=== PATIENT | female | born 1995 | race Caucasian/White ===

== ENCOUNTER 2017-05-26 01:19 | Emergency (ER) | payer OTHER ==
[~2017-05-26 01:19] MED LIST: CETI10TA10 PO; HYDR-3983 PO; PSEU120T2 PO
[2017-05-26 01:26] VITALS: O2SAT 94
[2017-05-26 01:30] VITALS: TEMP 36.5
[2017-05-26 02:21] LABS: BLOOD UREA NITROGEN 7 mg/dl (7-18); BUN/CREATININE RATIO 10.5 (10-20); CALCIUM 7.6 mg/dl (8.5-10.1); CARBON DIOXIDE 23 mmol/L (21-32); CHLORIDE 107 mmol/L (98-107); CREATININE 0.68 mg/dl (0.60-1.20); GLUCOSE 88 mg/dl (70-99); POTASSIUM 2.7 mmol/L (3.5-5.1); SODIUM 139 mmol/L (136-145)
[2017-05-26 02:22] LABS: PREG INTERNAL NEGATIVE QC NEG CLEAR BACKGROUND; PREG INTERNAL POSITIVE QC POS CONTROL LINE
[2017-05-26 07:11] VITALS: BP 127/78; PULSE 94; O2SAT 98
--- NOTE | 2017-05-26 23:08 | EMERGENCY ROOM VISIT NOTE ---
ED Visit Note First contact with patient: 01:20 CHIEF COMPLAINT: Altered mental status from Alcohol overdose HISTORY OF PRESENT ILLNESS: This 21 year old female patient presents to the emergency department via ambulance for evaluation of altered mental status, presumably from alcohol intoxication. The patient was observed being carried by her friends down the sidewalk in [facility]. The local police approached the patient who blew a 0.197 breathalyzer. The patient then began having several episodes of emesis and was difficult to arouse. Because of this she now presents to the ER for further management and evaluation. The patient admits to drinking alcohol tonight. She denies drug or substance abuse. There is no concern for sexual assault. The patient denies or injury. REVIEW OF SYSTEMS: Review of systems was somewhat limited secondary to patient' s presumed alcohol intoxication status. Review of systems was performed to the best of our ability and reperformed as the patient began to sober up. All other systems were reviewed and are negative. ALLERGIES: See EMR MEDICATIONS: See EMR PMH: No chronic medical disease SOCIAL HISTORY: Student who lives locally PHYSICAL EXAM VITALS: Vitals are noted on the nurse's note and reviewed by myself. Vital signs stable. GENERAL: White female, who is in no acute distress and resting comfortably. Patient is visibly altered and smells of alcohol. HEAD: Normocephalic atraumatic. EARS: External ear normal. External auditory canals clear, tympanic membranes pearly landa without erythema or effusion bilaterally. EYES: Pupils equal round and reactive to light and accommodation. Conjunctivae without injection, sclerae without icterus. Extraocular movements intact. NOSE: Patent, turbinates without inflammation or discharge. MOUTH: Mucous membranes moist. Tonsils are not enlarged. Pharynx without erythema, blood, vomitus, or exudate. Uvula midline. Airway patent. NECK: Supple without nuchal rigidity. No lymphadenopathy. Cervical spine is nontender. HEART: Regular rate and rhythm without murmurs gallops or rubs. LUNGS: Clear to auscultation bilaterally without wheezes, rales or rhonchi. No retractions or accessory muscle use. ABDOMEN: Positive normal bowel sounds x 4. Soft, nontender, without masses or organomegaly. No guarding or rebound tenderness. MUSCULOSKELETAL: No muscle atrophy, erythema, or edema noted. Gross motor function intact to all extremities. NEURO: Patient was alert to person but not place or time. They appear with altered mental status. SKIN: The skin was without rashes, erythema, edema, or bruising. No Tenting of the skin. EMERGENCY DEPARTMENT COURSE: Physical exam and history was performed. Nursing notes and EMR were reviewed. The patient appears to be altered on my examination. I suspect this is from an alcohol overdose. Conservative care measures and aspiration precautions were instituted. The patient was placed on shop superintendent and watched during the patient's stay. The patient was placed in a prone position. Blood work was obtained and was reviewed. The patient's blood alcohol level was 254. This appears to be the primary cause of the altered status. Patient was reevaluated multiple times throughout the course of their emergency department stay. Over time the patient did sober up and was able to talk, walk , and drink fluids without difficulty. The patient was felt stable for discharge home. The patient was given alcohol intoxication handouts. The patient was discharged home in stable condition with a sober ride. Differential diagnosis: Etiologies such as alcohol intoxication, metabolic, infection, hypoglycemia, electrolyte abnormalities, cardiac sources, intracerebral event, toxicologic, neurologic, as well as others were entertained. DIAGNOSIS: Acute alcohol intoxication Current/Historical Medications Unable to Obtain Active Prescriptions or Reported Meds Allergies Coded Allergies: No Known Allergies (Unverified , 06/24/14) Vital Signs Date Time Temp Pulse Resp B/P (MAP) Pulse Ox O2 Delivery O2 Flow Rate FiO2 05/26/17 07:11 94 23 127/78 98 05/26/17 06:30 100 18 115/85 100 Room Air 05/26/17 05:34 62 05/26/17 05:00 55 16 95/49 97 Room Air 05/26/17 04:00 60 16 98/41 97 Room Air 05/26/17 02:11 64 16 89/39 97 Room Air 05/26/17 01:32 68 05/26/17 01:30 36.5 64 16 118/47 96 Room Air 05/26/17 01:26 94 Room Air 05/26/17 01:26 94 Room Air Laboratory Results 05/26/17 01:35 Test 05/26/17 01:31 05/26/17 01:35 Ethyl Alcohol mg/dL 254.0 mg/dl (0-3) Anion Gap 9.0 mmol/L (3-11) Estimated GFR () 144.9 Estimated GFR (Non- 125.0 BUN/Creatinine Ratio 10.5 (10-20) Calcium Level 7.6 mg/dl (8.5-10.1) Human Chorionic Gonadotropin, Qual NEG (NEG) Departure Information Prescriptions Unable to Obtain Active Prescriptions or Reported Meds Referrals [facility] (PCP) Patient Instructions My [facility]
== END 2017-05-26 07:00 | disposition home or self-care (01) ==
LOC: EDBD 01:19 → C.EDB 01:20
DX: F10.129 Alcohol abuse with intoxication, unspecified (principal)

== ENCOUNTER 2018-02-05 21:56 | Emergency (ER) | payer OTHER ==
[~2018-02-05] VITALS: Ht 175.3 cm; Wt 68.8 kg
[2018-02-05 22:07] VITALS: TEMP 37.3; Ht 175.3 cm; Wt 68.8 kg
[2018-02-05] MEDS ORDERED: SODIUM CHLORIDE 0.9% 1000ML 1,000 ML IV STA (22:44)
[2018-02-05 23:03] LABS: BASO % 0.2 %; BASO ABS # 0.01 K/uL (0-0.2); EOS % 1.1 %; EOS ABS # 0.06 K/uL (0-0.5); HEMATOCRIT 39.4 % (37-47); HEMOGLOBIN 13.6 g/dL (12.0-16.0); IG# 0.02 K/uL (0.00-0.02); LYMPH ABS # 0.57 K/uL (1.2-3.4); MEAN CELL VOLUME 87.8 fL (80-100); MEAN CORPUSCULAR HEMOGLOBIN 30.3 pg (25-34); MEAN CORPUSCULAR HGB CONC 34.5 g/dl (32-36); MEAN PLATELET VOLUME 10.2 fL (7.4-10.4); MONO % 8.3 %; MONO ABS # 0.47 K/uL (0.11-0.59); NEUT ABS # 4.55 K/uL (1.4-6.5); PLATELET COUNT 191 K/uL (130-400); RED CELL DISTRIBUTION WIDTH CV 13.5 % (11.5-14.5); RED CELL DISTRIBUTION WIDTH SD 43.3 fL (36.4-46.3); WHITE BLOOD COUNT 5.68 K/uL (4.8-10.8)
[2018-02-05 23:10] LABS: ALBUMIN 3.8 gm/dl (3.4-5.0); CALCIUM 8.3 mg/dl (8.5-10.1); CREATININE 0.82 mg/dl (0.60-1.20); POTASSIUM 3.8 mmol/L (3.5-5.1)
[2018-02-05 23:13] LABS: TOTAL PROTEIN 7.2 gm/dl (6.4-8.2)
--- NOTE | 2018-02-06 00:04 | EMERGENCY ROOM VISIT NOTE ---
History Report prepared by Ajit: Patricia Abernathy Under the Supervision of: Dr. Angely Quesada D.O. First contact with patient: 22:18 Chief Complaint: VOMITING Stated Complaint: VOMITING,FEVER,DIARRHEA History of Present Illness The patient is a 22 year old female who presents to the Emergency Room with complaints of persistent diarrhea starting yesterday evening. She also complains of nausea and vomiting. This started yesterday at 2000. She had eaten a kale salad with quinoa at 1500 yesterday. Her roommate also had a salad, but it was a different type. Her roommate has not had any symptoms. She measured a fever of 102 at 2000. She had taken Advil at 1900. She reports body aches, lightheadedness with standing, and generalized weakness. She was seen at [facility] this morning and given Zofran which helped somewhat. She has not vomited today. She denies any blood in her stool or vomit. She has some abdominal cramping with the diarrhea. She denies any LOC. She denies any chance of . She denies any medical problems. Source of History: patient Onset: yesterday evening Position: abdomen Quality: other (diarrhea) Timing: other (persistent) Associated Symptoms: + fevers, + nausea, + vomiting, + abdominal pain, + weakness, No LOC, No hematochezia Note: Pt reports body aches, lightheadedness. Review of Systems See HPI for pertinent positives & negatives. A total of 10 systems reviewed and were otherwise negative. Past Medical & Surgical Medical Problems: (1) No chronic problems Family History No significant family history Social History Smoking Status: Never Smoker Housing Status: lives with roommate Occupation Status: [employer] student Current/Historical Medications Unable to Obtain Active Prescriptions or Reported Meds Allergies Coded Allergies: No Known Allergies (Unverified , 06/24/14) Physical Exam Vital Signs Date Time Temp Pulse Resp B/P (MAP) Pulse Ox O2 Delivery O2 Flow Rate FiO2 02/06/18 00:28 78 20 126/76 98 02/05/18 23:32 56 18 105/61 97 Room Air 02/05/18 22:07 37.3 65 18 108/65 95 Room Air Physical Exam GENERAL: alert, mildly ill appearing, well nourished, no distress, non-toxic EYE EXAM: normal conjunctiva, PERRL and EOM's grossly intact OROPHARYNX: no exudate, no erythema, lips, buccal mucosa, and tongue normal and mucous membranes are dry NECK: supple, no nuchal rigidity, no adenopathy, non-tender LUNGS: Clear to auscultation. Normal chest wall mechanics, no w/r/r HEART: no murmurs, S1 normal and S2 normal ABDOMEN: abdomen soft, non-tender, normo-active bowel sounds, no masses, no rebound or guarding. BACK: Back is symmetrical on inspection and there is no deformity, no midline tenderness, no CVA tenderness. SKIN: no rashes and no bruising UPPER EXTREMITIES: upper extremities are grossly normal. Full range of motion, normal pulses. LOWER EXTREMITIES: No pitting edema. Full range of motion, normal pulses. NEURO EXAM: Normal sensorium, cranial nerves II-XII grossly intact, normal speech, no gross weakness of arms, no gross weakness of legs. Medical Decision & Procedures Laboratory Results 02/05/18 22:20 Red Blood Count 4.49, Mean Corpuscular Volume 87.8, Mean Corpuscular Hemoglobin 30.3, Mean Corpuscular Hemoglobin Concent 34.5, Mean Platelet Volume 10.2, Neutrophils (%) (Auto) 80.0, Lymphocytes (%) (Auto) 10.0, Monocytes (%) (Auto) 8.3, Eosinophils (%) (Auto) 1.1, Basophils (%) (Auto) 0.2, Neutrophils # (Auto) 4.55, Lymphocytes # (Auto) 0.57, Monocytes # (Auto) 0.47, Eosinophils # (Auto) 0.06, Basophils # (Auto) 0.01 02/05/18 22:20 Test 02/05/18 22:20 White Blood Count 5.68 K/uL (4.8-10.8) Red Blood Count 4.49 M/uL (4.2-5.4) Hemoglobin 13.6 g/dL (12.0-16.0) Hematocrit 39.4 % (37-47) Mean Corpuscular Volume 87.8 fL (80-100) Mean Corpuscular Hemoglobin 30.3 pg (25-34) Mean Corpuscular Hemoglobin Concent 34.5 g/dl (32-36) Platelet Count 191 K/uL (130-400) Mean Platelet Volume 10.2 fL (7.4-10.4) Neutrophils (%) (Auto) 80.0 % Lymphocytes (%) (Auto) 10.0 % Monocytes (%) (Auto) 8.3 % Eosinophils (%) (Auto) 1.1 % Basophils (%) (Auto) 0.2 % Neutrophils # (Auto) 4.55 K/uL (1.4-6.5) Lymphocytes # (Auto) 0.57 K/uL (1.2-3.4) Monocytes # (Auto) 0.47 K/uL (0.11-0.59) Eosinophils # (Auto) 0.06 K/uL (0-0.5) Basophils # (Auto) 0.01 K/uL (0-0.2) RDW Standard Deviation 43.3 fL (36.4-46.3) RDW Coefficient of Variation 13.5 % (11.5-14.5) Immature Granulocyte % (Auto) 0.4 % Immature Granulocyte # (Auto) 0.02 K/uL (0.00-0.02) Anion Gap 4.0 mmol/L (3-11) Est Creatinine Clear Calc Drug Dose 112.5 ml/min Estimated GFR () 117.7 Estimated GFR (Non- 101.6 BUN/Creatinine Ratio 9.8 (10-20) Calcium Level 8.3 mg/dl (8.5-10.1) Magnesium Level 2.1 mg/dl (1.8-2.4) Total Bilirubin 0.6 mg/dl (0.2-1) Aspartate Amino Transf (AST/SGOT) 26 U/L (15-37) Alanine Aminotransferase (ALT/SGPT) 22 U/L (12-78) Alkaline Phosphatase 58 U/L (45-117) Total Protein 7.2 gm/dl (6.4-8.2) Albumin 3.8 gm/dl (3.4-5.0) Globulin 3.4 gm/dl (2.5-4.0) Albumin/Globulin Ratio 1.1 (0.9-2) Lipase 89 U/L (73-393) Human Chorionic Gonadotropin, Qual NEG (NEG) Laboratory results per my review. Medications Administered Medications (Trade) Dose Ordered Sig/Joao Route Start Time Stop Time Status Last Admin Dose Admin Sodium Chloride 1,000 ml @ 999 mls/hr Q1H1M STAT IV 02/05/18 22:44 02/05/18 23:44 DC 02/05/18 22:54 999 MLS/HR ED Course 2234: The patient was evaluated in room B2. A complete history and physical exam was performed. 2243: Sodium Chloride 1000 ml @ 999 mls/hr IV. 0000: Upon reevaluation, the patient is feeling better. I discussed the findings and the treatment plan with the patient. She verbalizes agreement and understanding. She will be discharged home after fluids are done. Medical Decision Differential diagnosis: Etiologies such as gastroenteritis, food borne illness, infections, appendicitis , diverticulitis, inflammatory bowel disease, obstruction, GI bleed, biliary pathology, as well as others were entertained. Patient well-appearing here despite complaints. Was tolerating sips of p.o. during my evaluation. Patient had no recurrent episodes of vomiting or diarrhea while in the emergency room. Patient's abdomen soft and nontender on initial as well as repeat exam. I do not have a high suspicion for a severe infectious foodborne illness at this time including E. coli. Patient's labs reassuring. Given lack of recurrent symptoms and abdominal pain during exam, do not feel patient warranted imaging at this time. Patient hemodynamically stable throughout. Patient was already prescribed Zofran by [facility] feeling encouraged her to use that if she had any recurrent nausea. Discussed careful hydration, diet and activity, symptoms to watch and return for, she verbalized understanding was agreeable to plan. Patient ambulatory here with a steady gait, no orthostatic symptoms. Patient with likely food borne illness given onset of symptoms shortly after food in question was ingested. I do not suspect other toxicologic or infectious etiology. Level of suspicion for any additional occult GI pathology including bowel obstruction, mesenteric ischemia , AAA, colitis, appendicitis, cholecystitis, diverticulitis. Medication Reconcilliation Current Medication List: was personally reviewed by me Blood Pressure Screening Patient's blood pressure: Normal blood pressure Blood pressure disposition: Did not require urgent referral Impression Primary Impression: Fever Additional Impressions: Nausea, vomiting, and diarrhea Dehydration Scribe Attestation The scribe's documentation has been prepared under my direction and personally reviewed by me in its entirety. I confirm that the note above accurately reflects all work, treatment, procedures, and medical decision making performed by me. Departure Information Dispostion Home / Self-Care Prescriptions Unable to Obtain Active Prescriptions or Reported Meds Referrals [facility] (PCP) Patient Instructions My [facility] Additional Instructions Please drink plenty of clear liquids at frequent intervals to stay well- hydrated. You may start with a bland diet as tolerated. You may continue using the nausea medication you were given at urgent care as previously prescribed. If you develop recurrent vomiting, worsening diarrhea, noticed black or bloody stools, have worsening abdominal pain, persistent fevers or chills, feel worsening dizziness or lightheadedness, develop a rash, you have any other new concerns, please return the emergency room. Problem Qualifiers Primary Impression: Fever Fever type: unspecified Qualified Codes: R50.9 - Fever, unspecified
[2018-02-06 00:28] VITALS: BP 126/76; PULSE 78; O2SAT 98
== END 2018-02-06 00:29 | disposition home or self-care (01) ==
LOC: C.EDB 21:57
DX: R50.9 Fever, unspecified (principal); R11.2 Nausea with vomiting, unspecified; R19.7 Diarrhea, unspecified; E86.0 Dehydration; R10.9 Unspecified abdominal pain